=== PATIENT | female | born 1955 | race Caucasian/White ===

== ENCOUNTER 2018-07-01 09:44 | Emergency (ER) | payer BC ==
--- NOTE | 2018-07-01 11:13 | ED Physician Documentation ---
PD HPI HEENT - Stated complaint Stated Complaint: DIZZY/JAW/CHEEK PX - Chief complaint Chief Complaint: General - History obtained from History obtained from: Patient - History of Present Illness Timing - onset: How many weeks ago (has had intermittent position vertigo symptoms for a week. More notable the past 1-2 days, worse with movement and dampens with rest. Also now having right upper teeth/maxillary pain as well as pressure in the ears and some mild congestion.) Timing - details: Gradual onset, Waxing and waning Location: Right ear (feeling of pressure and fluid, crackles with movement.), Other (feeling pressure right maxillary area, with pain in upper teeth right side.) Worsens: Position (positional vertigo with movement and improves when holding still. Vertigo caused with head movement.) Associated symptoms: Congestion. No: Fever, Swollen nodes, Facial swelling, Headache Similar symptoms before: Has not had sx before Review of Systems Constitutional: denies: Fever, Chills Ears: reports: Ear pain. denies: Drainage/discharge Nose: reports: Congestion, Sinus pressure / pain (right maxillary). denies: Rhinorrhea / runny nose Throat: reports: Dental pain / toothache (but does not hurt with occlusion, and no gum swelling.). denies: Sore throat, Swollen tonsils Neurologic: denies: Focal weakness, Numbness, Difficulty speaking PD PAST MEDICAL HISTORY - Past Medical History Past Medical History: No Cardiovascular: None Respiratory: None Neuro: None HEENT: None - Present Medications Home Medications: Ambulatory Orders Medication Instructions Recorded Confirmed Dexamethasone [Decadron] 4 mg PO DAILY #5 tablet 07/01/18 Doxycycline Monohydrate 100 mg PO BID #14 tablet 07/01/18 Meclizine HCl [Motion Sickness 25 mg PO Q8H PRN #30 tablet 07/01/18 Relief] - Allergies Allergies/Adverse Reactions: Allergies Allergy/AdvReac Type Severity Reaction Status Date / Time amoxicillin AdvReac Hallucinati Verified 07/01/18 10:01 ons - Social History Does the pt smoke?: No Smoking Status: Never smoker PD ED PE NORMAL - Vitals Vital signs reviewed: Yes - General General: Alert and oriented X 3, No acute distress, Well developed/nourished - HEENT HEENT: Atraumatic, PERRL, EOMI (with some nystagmus to the right. ), Ears normal (the right TM with some fluid behind it, but minimal redness. 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 Normal CN exam. Consider some process of petrous ridge or such, causing the dizziness/vertigo.), d/w patient - Sepsis Event Vital Signs: Vital Signs - 24 hr 07/01/18 07/01/18 09:57 12:23 Temperature 36.8 C 36.7 C Heart Rate 98 99 Respiratory 16 16 Rate Blood Pressure 147/80 H 152/91 H O2 Saturation 98 97 Oxygen O2 Source Room air Departure - Departure Disposition: 01 Home, Self Care Clinical Impression: Vertigo, Acute facial pain Sinusitis, acute Qualifiers: Sinusitis location: maxillary Recurrence: non-recurrent Qualified Code(s): J01.00 - Acute maxillary sinusitis, unspecified Condition: Stable Record reviewed to determine appropriate education?: Yes Instructions: ED Sinusitis Abx Tx Prescriptions: Dexamethasone [Decadron] 4 mg PO DAILY #5 tablet Doxycycline Monohydrate 100 mg PO BID #14 tablet Meclizine HCl [Motion Sickness Relief] 25 mg PO Q8H PRN #30 tablet PRN Reason: Vertigo Comments: I think your symptoms relate to sinus inflammation and possible infection. That could account for the maxillary and upper teeth pain on the right as well as the fluid pressure buildup in the right ear and the dizziness. We will see how much improves with Decadron steroid anti-inflammatory along with doxycycline antibiotic. Use meclizine if needed for the dizziness. Tylenol if needed for pains. Recheck with your primary care or ENT if not improving over the next several days. Discharge Date/Time: 07/01/18 12:28
[2018-07-01] MEDS ORDERED: MECLIZINE 12.5 MG TABLET PO STA (11:56)
[2018-07-01] MEDS ORDERED: DOXYCYCLINE 100 MG TABLET PO STA (11:56)
[2018-07-01] MEDS ORDERED: DEXAMETHASONE 10 MG/ML VIAL PO STA (11:56)
[2018-07-01] MEDS ORDERED: CHERRY SYRUP 10 ML UDC PO ONE (12:01)
[2018-07-01 12:23] VITALS: BP 152/91
== END 2018-07-01 12:28 | disposition home or self-care (01) ==
LOC: ED 09:44
DX: R42 Dizziness and giddiness (principal); R51 Headache; J01.00 Acute maxillary sinusitis, unspecified
CPT/HCPCS: 99283; A9270